=== PATIENT | female | born 2000 | race African-American/Black ===

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

== ENCOUNTER 2022-07-28 17:00 | Emergency (ER) | payer OTHER ==
[2022-07-28 17:13] VITALS: BP 130/79; PULSE 76; RESP 19; TEMP 98.1; BMI 34.4
[2022-07-28] MEDS ORDERED: ACETAMINOPHEN 500 MG TABLET (FP) PO ONE (18:24)
[2022-07-28] MEDS ORDERED: ACETAMINOPHEN 500 MG TABLET (FP) ONE (18:36)
== END 2022-07-28 18:58 | disposition home or self-care (01) ==
LOC: JERFT 17:00
DX: M54.9 Dorsalgia, unspecified (principal); V89.2XXA Person injured in unspecified motor-vehicle accident, traffic, initial encounter; Y93.9 Activity, unspecified; Y92.9 Unspecified place or not applicable
CPT/HCPCS: 99283-25